=== PATIENT | female | born 1950 | race Caucasian/White ===

== ENCOUNTER 2022-05-07 13:33 | Inpatient (IN) | payer MEDICARE ==
[~2022-05-07] VITALS: Ht 182.9 cm; Wt 90.7 kg
[2022-05-07] MEDS ORDERED: SODIUM CHLORIDE 0.9% 1000ML 1,000 ML IV ONE (14:30)
[2022-05-07 14:41] LABS: BASOPHILS % 0.3 % (0.0-1.0); EOSINOPHILS % 0.2 % (0.0-6.0); HEMATOCRIT 42.2 % (34.2-44.1); HEMOGLOBIN 14.2 g/dL (12.0-16.0); LYMPHOCYTES # (AUTO) 0.8 (1.0-3.2); LYMPHOCYTES % 6.9 % (18.0-39.1); MEAN CORPUSCULAR HEMOGLOBIN 32.2 pg (28-32); MEAN CORPUSCULAR HGB CONC 33.6 g/dL (31-35); MEAN CORPUSCULAR VOLUME 95.7 fL (81-99); MONOCYTES % 8.1 % (4.4-11.3); NEUTROPHILS # (AUTO) 9.8 (2.1-6.9); PLATELET COUNT 348 x10e3/uL (140-360); RED BLOOD COUNT 4.41 x10e6/uL (3.6-5.1); RED CELL DISTRIBUTION WIDTH 12.2 % (11.7-14.4)
[2022-05-07 15:01] LABS: ALANINE AMINOTRANSFERASE 16 IU/L (0-55); ALBUMIN 3.6 g/dL (3.5-5.0); ALBUMIN/GLOBULIN RATIO 0.7 (0.8-2.0); ALKALINE PHOSPHATASE 85 IU/L (40-150); ANION GAP 17.4 mmol/L (8-16); BLOOD UREA NITROGEN 11 mg/dL (7-26); BUN/CREATININE RATIO 14 (6-25); CALCIUM 10.2 mg/dL (8.4-10.2); CARBON DIOXIDE 28 mmol/L (22-29); CHLORIDE 99 mmol/L (98-107); CREATININE, SERUM 0.79 mg/dL (0.57-1.11); GLUCOSE 115 mg/dL (74-118); POTASSIUM 3.4 mmol/L (3.5-5.1); SODIUM 141 mmol/L (136-145)
[2022-05-07 15:04] LABS: SALICYLATE < 5.0 mg/dL (0-30)
[2022-05-07 15:05] LABS: CREATINE KINASE 240 IU/L (29-168)
[2022-05-07 15:19] LABS: AMPHETAMINES SCREEN,URINE NEGATIVE (NEGATIVE); BENZODIAZEPINES SCREEN,URINE POSITIVE (NEGATIVE); CLARITY,URINE SL CLOUDY (CLEAR); COLOR,URINE YELLOW (YELLOW); KETONES,URINE 2+ (NEGATIVE); LEUKOCYTE ESTERASE ,URINE TRACE (NEGATIVE); NITRITE,URINE NEGATIVE (NEGATIVE); PHENCYCLIDINE SCREEN,URINE NEGATIVE (NEGATIVE); PROTEIN,URINE DIPSTICK 1+ (NEGATIVE)
[2022-05-07 15:20] LABS: URINE UROBILINOGEN 0.2 mg/dL (0.2 - 1)
[2022-05-07 15:24] LABS: AMORPHOUS SEDIMENT,URINE FEW (FEW); BACTERIA,URINE MODERATE /HPF; WBC,URINE (MAN) 0-5 /HPF (0-5)
[2022-05-07] MEDS ORDERED: IOPAMIDOL 370 MG/ML 100 ML INFUS..BTL INJ ONE (15:38)
[2022-05-07] MEDS ORDERED: LORAZEPAM INJ 2 MG/ML VIAL IV PRN (17:45)
[2022-05-07] MEDS ORDERED: ONDANSETRON HCL INJ 2MG/ML 2ML 2 MG/ML VIAL IV PRN (17:45)
[2022-05-07] MEDS ORDERED: MULTIVITAMINS- 12 INJECTION 10 ML, FOLIC ACID MDV 1 MG, THIAMINE HCL INJ 100 MG in SODI... IV ONE (17:45)
[2022-05-07] MEDS ORDERED: Morphine 2mg Syringe 2 MG/ML SYR IV ONE (18:15)
[2022-05-07] MEDS: SODIUM CHLORIDE 0.9% 1000ML 1,000 ML IV SCH (18:15)
[2022-05-07] MEDS ORDERED: KETOROLAC TROMETHAMINE 30 MG/ML VIAL ONE (18:27)
[2022-05-07 20:00] VITALS: BP 126/97
[2022-05-07 20:33] VITALS: BP 126/97
[2022-05-07] MEDS ORDERED: NEURONTIN300 MG PO (20:50)
[2022-05-07] MEDS ORDERED: BENZONATATE100 MG PO (20:50)
[2022-05-08] VITALS (7 sets, daily range): BP systolic 145–174; BP diastolic 78–102
[2022-05-08] MEDS ORDERED: OLANZAPINE 10 MG VIAL IM ONE (01:45)
[2022-05-08] MEDS ORDERED: POTASSIUM CHLORIDE 20 MEQ TAB CR PO STA (02:58)
[2022-05-08] MEDS ORDERED: THIAMINE HCL INJ 100 MG/ML 2ML VIAL IV ONE (03:00)
[2022-05-08] MEDS ORDERED: GUAIFENESIN/DEXTROMETHORPHAN LIQD 5 ML UDC PO PRN (03:00)
[2022-05-08] MEDS ORDERED: MELATONIN 3 MG TAB PO PRN (03:00)
[2022-05-08] MEDS ORDERED: DOCUSATE SODIUM 100 MG CAP PO PRN (03:00)
[2022-05-08] MEDS ORDERED: MAGNESIUM/ALUMINUM/SIMETHICONE 30 ML UDC PO PRN (03:00)
[2022-05-08] MEDS ORDERED: ACETAMINOPHEN 325 MG TAB PO PRN (03:00)
[2022-05-08] MEDS ORDERED: HYDRALAZINE HCL 20 MG/ML VIAL IV PRN ×2 (03:00→13:00)
[2022-05-08] MEDS: TRAMADOL HCL 50 MG TAB PO PRN ×2 (03:00→17:19)
[2022-05-08] MEDS ORDERED: BENZONATATE 100 MG CAP PO PRN (03:00)
[2022-05-08] MEDS ORDERED: OLANZAPINE 5 MG TAB PO PRN (03:15)
[2022-05-08] MEDS: SODIUM CHLORIDE 0.9% 1000ML 1,000 ML IV SCH ×2 (05:16→17:29)
[2022-05-08 06:41] LABS: ALBUMIN 2.9 g/dL (3.5-5.0); ALBUMIN/GLOBULIN RATIO 0.7 (0.8-2.0); ANION GAP 15.3 mmol/L (8-16); CALCIUM 8.6 mg/dL (8.4-10.2); CREATININE, SERUM 0.7 mg/dL (0.57-1.11); POTASSIUM 3.3 mmol/L (3.5-5.1)
[2022-05-08 06:42] LABS: MAGNESIUM 1.5 MG/DL (1.3-2.1); PHOSPHORUS 2.6 MG/DL (2.3-4.7)
[2022-05-08 06:45] LABS: BASOPHILS % 0.4 % (0.0-1.0); EOSINOPHILS # (AUTO) 0.2 (0.0-0.4); EOSINOPHILS % 2.2 % (0.0-6.0); HEMATOCRIT 39.4 % (34.2-44.1); LYMPHOCYTES # (AUTO) 0.7 (1.0-3.2); LYMPHOCYTES % 8.6 % (18.0-39.1); MEAN CORPUSCULAR HEMOGLOBIN 32.2 pg (28-32); MEAN CORPUSCULAR VOLUME 97.5 fL (81-99); MONOCYTES % 11.1 % (4.4-11.3); NEUTROPHILS # (AUTO) 6.6 (2.1-6.9); NEUTROPHILS % 77.3 % (38.7-80.0); PLATELET COUNT 304 x10e3/uL (140-360); RED BLOOD COUNT 4.04 x10e6/uL (3.6-5.1); RED CELL DISTRIBUTION WIDTH 12.3 % (11.7-14.4)
[2022-05-08] MEDS ORDERED: MULTIVITAMINS/MINERALS TAB PO SCH (09:00)
[2022-05-08] MEDS: GABAPENTIN 300 MG CAP PO SCH ×2 (09:05→17:25)
[2022-05-08] MEDS: LORAZEPAM 1 MG TAB PO PRN ×2 (09:05→18:07)
[2022-05-08] MEDS ORDERED: POTASSIUM CHLORIDE 20 MEQ TAB CR PO NR (13:32)
[2022-05-08] MEDS ORDERED: ENOXAPARIN SOD INJ 40 MG/0.4 ML SYR SC SCH (17:00)
== END 2022-05-08 23:17 | disposition short-term general hospital (02) | DRG 917 ==
LOC: ER 13:59 → ERHOLD 17:46 → OBSVTOIN 17:46 → MED/SURG3 19:30
PROVIDERS: ADMIT Internal Medicine Critical Care Medicine; ATTEND Internal Medicine Critical Care Medicine
DX: T40.711A Poisoning by cannabis, accidental (unintentional), initial encounter (principal); G92.8 Other toxic encephalopathy; M62.82 Rhabdomyolysis; T42.6X1A Poisoning by other antiepileptic and sedative-hypnotic drugs, accidental (unintentional), initial encounter; G89.29 Other chronic pain; R45.1 Restlessness and agitation; E88.09 Other disorders of plasma-protein metabolism, not elsewhere classified; I16.0 Hypertensive urgency; K57.90 Diverticulosis of intestine, part unspecified, without perforation or abscess without bleeding; N28.1 Cyst of kidney, acquired; Y92.009 Unspecified place in unspecified non-institutional (private) residence as the place of occurrence of the external cause; D89.2 Hypergammaglobulinemia, unspecified; F17.210 Nicotine dependence, cigarettes, uncomplicated; E87.6 Hypokalemia; M54.50 Low back pain, unspecified; Z20.822 Contact with and (suspected) exposure to COVID-19; E86.0 Dehydration
CPT/HCPCS: 0223U; 36415; 51700; 70450; 71045; 72125; 72128; 74177; 80053; 80307; 80320; 80329; 81001; 82140; 82375; 82550; 83735; 84100; 84484; 85025; 87040; 87086; 93005; 99285; J0360; J1650; J1885; J2270; J2405; J3411; J7030; Q9967